=== PATIENT | female | born 1995 | race Caucasian/White ===

== ENCOUNTER 2017-07-03 11:08 | Emergency (ER) | payer BC ==
[~2017-07-03] VITALS: Wt 52.5 kg
[~2017-07-03 11:08] MED LIST: IBUP400T22 PO
[2017-07-03 12:58] LABS: ADD UMIC NO; UR ASCORBIC ACID NEGATIVE (NEGATIVE); UR BILIRUBIN (Dip) NEGATIVE (NEGATIVE); UR BLOOD (Dip) NEGATIVE (NEGATIVE); UR CLARITY CLEAR (CLEAR); UR COLOR YELLOW (YELLOW); UR GLUCOSE (Dip) NEGATIVE (NEGATIVE); UR KETONES (Dip) NEGATIVE (NEGATIVE); UR LEUKOCYTE ESTERASE (Dip) NEGATIVE Leu/ul (NEGATIVE); UR NITRITE (Dip) NEGATIVE (NEGATIVE); UR SPECIFIC GRAVITY (Dip) 1.011 (1.003-1.030); UR TOTAL PROTEIN (Dip) NEGATIVE (NEGATIVE); UR UROBILINOGEN (Dip) NEGATIVE (NEGATIVE)
--- NOTE | 2017-07-03 13:04 | RADRPT ---
PROCEDURE: US Pelvis CLINICAL INDICATION: Abdominal pain TECHNIQUE: Sonographic evaluation of the pelvis was performed utilizing both transabdominal and tr ansvaginal technique. Curved array transabdominal transducer technique as well as a high frequency endovaginal probe was utilized. Images were reviewed on the high-resolution PACS workstation. COMPARISON: No prior studies are available for comparison. FINDINGS: The uterus is normal in size, echogenicity, and morphology measuring 6.8 x 3.1 x 4.9 cm in dimension . The uterus is anteverted in normal position. The endometrium is thin and homogeneous measuring 3.7 mm in diameter. The normal trilaminar stripe of the endometrium is preserved. The right ovary measures 2.9 x 2.0 x 1.8 cm in dimension. The left ovary measures 2.4 x 1.7 x 1.9 c m in dimension. The ovaries are symmetric in size, echogenicity, and morphology. Normal Doppler fl ow is demonstrated to both ovaries. There are no adnexal masses. There is no significant free flui d in the pelvis. IMPRESSION: Unremarkable ultrasound of the pelvis. RPTAT: HH .Nabila Mandel MD, Date Time Electronically viewed and signed by .Nabila Mandel MD, MD on 07/03/2017 13:03 .Eliane/
[2017-07-03 13:10] LABS: BASOPHIL # 0.1 10^3/ul (0.0-0.1); BASOPHILS % 0.5 % (0.0-2.0); EOSINOPHILS # 0.1 10^3/ul (0.0-0.5); EOSINOPHILS % 0.6 % (0.0-7.0); HEMATOCRIT 38.7 % (37.0-47.0); HEMOGLOBIN 12.4 g/dl (12.0-16.0); LYMPHOCYTES % 17.2 % (15.0-51.0); MEAN CORPUSCULAR HEMOGLOBIN 27.5 pg (29.0-33.0); MEAN CORPUSCULAR VOLUME 85.8 fl (82.0-101.0); MEAN PLATELET VOLUME 9.8 fl (7.4-10.4); MONOCYTE # 0.6 10^3/ul (0.3-0.9); MONOCYTES % 5.5 % (0.0-11.0); NEUTROPHIL # 8.9 10^3/ul (1.6-7.5); NEUTROPHILS % 75.9 % (39.0-77.0); PLATELET COUNT 406 10^3/UL (140-415); RED BLOOD COUNT 4.51 10^6/ul (4.20-5.40); RED CELL DISTRIBUTION WIDTH 14.3 % (11.5-14.5); WHITE BLOOD COUNT 11.7 10^3/ul (4.8-10.8)
--- NOTE | 2017-07-03 13:27 | RADRPT ---
PROCEDURE: CT Abdomen and Pelvis without contrast. CLINICAL INDICATION: Right lower quadrant pain TECHNIQUE: CT of the abdomen and pelvis was performed on a multi-detector scanner without IV contr ast. Coronal and sagittal images were reformatted from the axial data set. One or more of the foll owing dose reduction techniques were used: automated exposure control, adjustment of the mA and/or k V according to patient size, use of iterative reconstruction technique. CTDI = 4.73 mGy. DLP = 250. 85 mGy-cm. COMPARISON: Ultrasound, 07/03/2017 FINDINGS: The lung bases are clear. The heart size is normal, without pericardial effusion. Liver, gallbladd er, biliary tree, pancreas, spleen, adrenal glands and kidneys are unremarkable. There is no urolit hiasis or obstructive uropathy. The stomach is grossly unremarkable. The aorta is of normal caliber. There is no retroperitoneal lymphadenopathy. The inna hepatis reg ion is clear. No bowel obstruction, free intraperitoneal air or abscess is identified. The appendix is well visual ized and normal. There is no diverticulosis, diverticulitis or colitis. Urinary bladder, uterus and adnexa are grossly unremarkable. No pelvic mass, free fluid or lymphadenopathy is identified. The surrounding osseous structures are unremarkable. No osteolytic or osteoblastic lesion is detect ed. IMPRESSION: 1. Normal appendix. 2. No urolithiasis or obstructive uropathy is seen. 3. No mass, lymphadenopathy, or focal acute inflammatory process is identified. RPTAT: AAOO .Kamron Iglesias MD, Date Time Electronically viewed and signed by .Kamron Iglesias MD, MD on 07/03/2017 13:27 .R/
[2017-07-03 13:33] LABS: ALBUMIN 4.6 g/dl (3.3-4.9); ALBUMIN/GLOBULIN RATIO 1.04; BILIRUBIN,INDIRECT 0.5 mg/dl (0-1.1); BILIRUBIN,TOTAL 0.5 mg/dl (0.2-1.3); CALCIUM 9.4 mg/dl (8.4-10.2); CREATININE 0.62 mg/dl (0.44-1.00); POTASSIUM 3.7 mmol/L (3.5-5.1)
[2017-07-03] MEDS ORDERED: IBUP-1542 PO (13:47)
--- NOTE | 2017-07-03 13:56 | ERD ---
ER Documentation Chief Complaint Date/Time DATE: 07/03/17 TIME: 13:51 Chief Complaint ABD PAIN, VAG BLEEDING, NO N/V HPI This is a 29-year-old female presents to the ER with right lower quadrant pain that started on Thursday. Patient states that right lower quadrant pain is gotten significantly worse. Pain is worse with movements. It is described as crampy and constant. Patient tried tylenol for the pain, however it did not work. she is also experiencing vaginal bleeding, per patient this is different from her period. Patient is currently sexually active is on control, therefore has normal periods. Not have any nausea vomiting or diarrhea. She does not have any fevers or chills. She denies any urinary frequency or dysuria. ROS 12 point review of systems was done, all negative except per HPI. Medications Home Meds Active Scripts Ibuprofen* (Motrin*) 600 Mg Tab, 600 MG PO Q6, #30 TAB Prov:FLOR DAWKINS 07/03/17 Ibuprofen* (Motrin*) 400 Mg Tab, 400 MG PO Q6, #30 TAB Prov:DESTINEY BREWER PA-C 09/26/16 Allergies Allergies: Coded Allergies: No Known Allergy (Unverified , 09/26/16) PMhx/Soc Medical and Surgical Hx: pt denies Medical Hx, pt denies Surgical Hx Hx Alcohol Use: No Hx Substance Use: No Hx Tobacco Use: No Physical Exam Vitals Vital Signs Date Time Temp Pulse Resp B/P Pulse Ox O2 Delivery O2 Flow Rate FiO2 07/03/17 11:11 98.7 87 18 116/77 98 Physical Exam Const: [] Head: Atraumatic Eyes: Normal Conjunctiva ENT: Normal External Ears, Nose and Mouth. Neck: Full range of motion..~ No meningismus. Resp: Clear to auscultation bilaterally Cardio: Regular rate and rhythm, no murmurs Abd: Soft, non tender, non distended. Normal bowel sounds Skin: No petechiae or rashes Back: No midline or flank tenderness Ext: No cyanosis, or edema Neur: Awake and alert Psych: Normal Mood and Affect Result Diagram: 07/03/17 1300 07/03/17 1300 Results 24 hrs Laboratory Tests Test 07/03/17 12:42 07/03/17 13:00 Urine Color YELLOW Urine Clarity CLEAR Urine pH 8.0 Urine Specific [place] 1.011 Urine Ketones NEGATIVEmg/dL Urine Nitrite NEGATIVEmg/dL Urine Bilirubin NEGATIVEmg/dL Urine Urobilinogen NEGATIVEmg/dL Urine Leukocyte Esterase NEGATIVELeu/ul Urine Hemoglobin NEGATIVEmg/dL Urine Glucose NEGATIVEmg/dL Urine Total Protein NEGATIVEmg/dl White Blood Count 11.710^3/ul Red Blood Count 4.5110^6/ul Hemoglobin 12.4g/dl Hematocrit 38.7% Mean Corpuscular Volume 85.8fl Mean Corpuscular Hemoglobin 27.5pg Mean Corpuscular Hemoglobin Concent 32.0g/dl Red Cell Distribution Width 14.3% Platelet Count 24185^3/UL Mean Platelet Volume 9.8fl Neutrophils % 75.9% Lymphocytes % 17.2% Monocytes % 5.5% Eosinophils % 0.6% Basophils % 0.5% Nucleated Red Blood Cells % 0.0/100WBC Neutrophils # 8.910^3/ul Lymphocytes # 2.010^3/ul Monocytes # 0.610^3/ul Eosinophils # 0.110^3/ul Basophils # 0.110^3/ul Nucleated Red Blood Cells # 0.010^3/ul Sodium Level 140mmol/L Potassium Level 3.7mmol/L Chloride Level 104mmol/L Carbon Dioxide Level 27mmol/L Anion Gap 13 Blood Urea Nitrogen 6mg/dl Creatinine 0.62mg/dl Glucose Level 84mg/dl Calcium Level 9.4mg/dl Total Bilirubin 0.5mg/dl Direct Bilirubin 0.00mg/dl Indirect Bilirubin 0.5mg/dl Aspartate Amino Transf (AST/SGOT) 22IU/L Alanine Aminotransferase (ALT/SGPT) 31IU/L Alkaline Phosphatase 70IU/L Total Protein 9.0g/dl Albumin 4.6g/dl Globulin 4.40g/dl Albumin/Globulin Ratio 1.04 Lipase 85U/L [place] [address] Radiology Main Line: [phone] DIAGNOSTIC IMAGING REPORT Patient: GLORIA KELLEY : 1995 Age: 21 Sex: F MR #: [id number] DOS: 07/03/17 1216 Ordering MD: FLOR DAWKINS PA-C Location: [facility] Room/Bed: PROCEDURE: CT Abdomen and Pelvis without contrast. CLINICAL INDICATION: Right lower quadrant pain TECHNIQUE: CT of the abdomen and pelvis was performed on a multi-detector scanner without IV contrast. Coronal and sagittal images were reformatted from the axial data set. One or more of the following dose reduction techniques were used: automated exposure control, adjustment of the mA and/or kV according to patient size, use of iterative reconstruction technique. CTDI = 4.73 mGy. DLP = 250.85 mGy-cm. COMPARISON: Ultrasound, 07/03/2017 FINDINGS: The lung bases are clear. The heart size is normal, without pericardial effusion. Liver, gallbladder, biliary tree, pancreas, spleen, adrenal glands and kidneys are unremarkable. There is no urolithiasis or obstructive uropathy. The stomach is grossly unremarkable. The aorta is of normal caliber. There is no retroperitoneal lymphadenopathy. The inna hepatis region is clear. No bowel obstruction, free intraperitoneal air or abscess is identified. The appendix is well visualized and normal. There is no diverticulosis, diverticulitis or colitis. Urinary bladder, uterus and adnexa are grossly unremarkable. No pelvic mass, free fluid or lymphadenopathy is identified. The surrounding osseous structures are unremarkable. No osteolytic or osteoblastic lesion is detected. IMPRESSION: 1. Normal appendix. 2. No urolithiasis or obstructive uropathy is seen. 3. No mass, lymphadenopathy, or focal acute inflammatory process is identified. RPTAT: AAOO .Kamron Iglesias MD, MD Date Time Electronically viewed and signed by .Kamron Iglesias MD, MD on 07/03/2017 13: 27 .R/ CC: FLOR DAWKINS [place] [address] Radiology Main Line: [phone] DIAGNOSTIC IMAGING REPORT Patient: GLORIA KELLEY : 1995 Age: 21 Sex: F MR #: [id number] DOS: 07/03/17 0000 Ordering MD: FLOR DAWKINS PA-C Location: [facility] Room/Bed: PROCEDURE: US Pelvis CLINICAL INDICATION: Abdominal pain TECHNIQUE: Sonographic evaluation of the pelvis was performed utilizing both transabdominal and transvaginal technique. Curved array transabdominal transducer technique as well as a high frequency endovaginal probe was utilized. Images were reviewed on the high-resolution PACS workstation. COMPARISON: No prior studies are available for comparison. FINDINGS: The uterus is normal in size, echogenicity, and morphology measuring 6.8 x 3.1 x 4.9 cm in dimension. The uterus is anteverted in normal position. The endometrium is thin and homogeneous measuring 3.7 mm in diameter. The normal trilaminar stripe of the endometrium is preserved. The right ovary measures 2.9 x 2.0 x 1.8 cm in dimension. The left ovary measures 2.4 x 1.7 x 1.9 cm in dimension. The ovaries are symmetric in size, echogenicity, and morphology. Normal Doppler flow is demonstrated to both ovaries. There are no adnexal masses. There is no significant free fluid in the pelvis. IMPRESSION: Unremarkable ultrasound of the pelvis. RPTAT: HH .Nabila Mandel MD, MD Date Time Electronically viewed and signed by .Nabila Mandel MD, MD on 07/03/2017 13 :03 .G/ CC: FLOR DAWKINS Procedures/MDM Differential diagnosis includes but is not limited to appendicitis, hernia, UTI , constipation, ectopic , ovarian torsion, PID, Mittelschmerz, fibroid. This is a 21-year-old female presents to the ER with worsening right lower quadrant pain, at this time there is no evidence of appendicitis or ovarian torsion. patient is afebrile and extremely well-appearing. Patient was benign, she is stable for outpatient follow-up. Patient will be sent home with ibuprofen. She is to follow-up with her primary care doctor within 1-2 days return to ER sooner if symptoms worsen. My medical decision making shared with the patient she understands and agrees with plan. Departure Diagnosis: Primary Impression: Abdominal pain Condition: Stable Patient Instructions: Abdominal Pain Referrals: SHYAM PALENCIA MD (PCP) Additional Instructions: Call your primary care doctor TOMORROW for an appointment during the next 1-2 days.See the doctor sooner or return here if your condition worsens before your appointment time. FLOR DAWKINS Jul 03, 2017 13:56
[2017-07-03 14:00] VITALS: BP 111/66; PULSE 97; RESP 16; TEMP 97.9
== END 2017-07-03 13:57 | disposition home or self-care (01) ==
LOC: FTE 11:08
DX: R10.31 Right lower quadrant pain (principal)
CPT/HCPCS: 36415; 74176; 76830; 76856; 80053; 81003; 83690; 85025

== ENCOUNTER 2018-04-02 10:15 | Emergency (ER) | END 2018-04-02 11:06 | disposition home or self-care (01) ==

== ENCOUNTER 2018-07-27 17:00 | Emergency (ER) | END 2018-07-27 18:10 | disposition left against medical advice (07) ==

== ENCOUNTER 2018-09-20 12:04 | Emergency (ER) | END 2018-09-20 14:10 | disposition home or self-care (01) ==

== ENCOUNTER 2018-10-02 07:31 | Emergency (ER) | payer BC ==
[~2018-10-02] VITALS: Ht 157.5 cm; Wt 58.2 kg
[~2018-10-02 07:31] MED LIST changes: +HYDR-4011 PO; +IBUP-1542 PO; +IBUP-1561 PO; -IBUP400T22 PO; +METH750T93 PO; +NAPR-985 PO
[2018-10-02 07:33] VITALS: Ht 157.5 cm; Wt 58.2 kg
[2018-10-02] MEDS ORDERED: PHEN-538 PO (07:52)
[2018-10-02] MEDS ORDERED: CEPH-443 PO (07:52)
--- NOTE | 2018-10-02 07:54 | ERD ---
ER Documentation Chief Complaint Chief Complaint right lower quadrant pain 3/10 onset 4 days ago HPI This is a 23-year-old female presents ED with complaints of dysuria times 4 days. Patient admits to some lower suprapubic discomfort associated with the dysuria. Admits to hematuria and increased frequency of urination. Denies fever, chills, nausea, vomiting, diarrhea, constipation, back pain, fever, chills and other symptoms. No known drug allergies ROS All systems reviewed and are negative except as per history of present illness. Medications Home Meds Active Scripts Cephalexin* (Keflex*) 500 Mg Capsule, 500 MG PO BID for 7 Days, CAP Prov:DWAYNE SANTOS PA-C 10/02/18 Phenazopyridine Hcl* (Pyridium*) 200 Mg Tab, 200 MG PO TID PRN for URINARY PAIN, #6 TAB Prov:DWAYNE SANTOS PA-C 10/02/18 Methocarbamol* (Robaxin*) 750 Mg Tablet, 750 MG PO TID PRN for prn, #30 TAB Prov:BESSIE LENNON DO 09/20/18 Hydrocodone/Acetaminophen ([place] 5-325 Tablet) 1 Each Tablet, 1 TAB PO Q6H PRN for PAIN, #10 TAB Prov:BESSIE LENNON DO 09/20/18 Naproxen* (Naprosyn*) 500 Mg Tablet, 500 MG PO BID PRN for PAIN AND/OR INFLAMMATION, #30 TAB Prov:CHRISTOFER MASCORRO PA-C 04/02/18 Ibuprofen* (Motrin*) 600 Mg Tab, 600 MG PO Q6, #30 TAB Prov:FLOR DAWKINS 07/03/17 Ibuprofen* (Motrin*) 400 Mg Tab, 400 MG PO Q6, #30 TAB Prov:DESTINEY BREWER PA-C 09/26/16 Allergies Allergies: Coded Allergies: No Known Allergy (Unverified , 10/02/18) PMhx/Soc History of Surgery: Yes (breast aug) Anesthesia Reaction: No Hx Neurological Disorder: No Hx Respiratory Disorders: No Hx Cardiac Disorders: No Hx Psychiatric Problems: No Hx Miscellaneous Medical Probl: No Hx Alcohol Use: No Hx Substance Use: No Hx Tobacco Use: No FmHx Family History: No diabetes Physical Exam Vitals Vital Signs Date Temp Pulse Resp B/P (MAP) Pulse Ox O2 O2 Flow FiO2 Time Delivery Rate 10/02/18 98.9 94 18 106/62 98 07:33 (77) Physical Exam Const: No acute distress Head: Atraumatic Eyes: Normal Conjunctiva ENT: Normal External Ears, Nose and Mouth. Neck: Full range of motion. No meningismus. Resp: Clear to auscultation bilaterally Cardio: Regular rate and rhythm, no murmurs Abd: Soft, nondistended, no peritoneal signs, no rigidity, no surgical abdomen, bowel sounds present all 4 quadrants, nontender light and deep palpation all 4 quadrants, McBurney's point nontender, no rebound tenderness, mild suprapubic tenderness Back: No midline or flank tenderness Results 24 hrs Laboratory Tests Test 10/02/18 07:47 10/02/18 07:49 Urine Color YELLOW Urine Clarity CLOUDY Urine pH 7.0 Urine Specific [place] 1.019 Urine Ketones NEGATIVE mg/dL Urine Nitrite NEGATIVE mg/dL Urine Bilirubin NEGATIVE mg/dL Urine Urobilinogen 1+ mg/dL Urine Leukocyte Esterase 3+ Nikos/ul Urine Microscopic RBC 56 /HPF Urine Microscopic WBC > 182 /HPF Urine Squamous Epithelial Cells MODERATE /HPF Urine Transitional Epithelial Cells FEW /HPF Urine Bacteria FEW /HPF Urine Mucus FEW /HPF Urine Hemoglobin 2+ mg/dL Urine Glucose NEGATIVE mg/dL Urine Total Protein 2+ mg/dl POC Beta HCG, Qualitative NEGATIVE Current Medications Medications Dose Sig/[place] Start Time Status Last (Trade) Ordered Route PRN Stop Time Admin Dose Reason Admin 200 mg ONCE ONCE 10/02/18 DC 10/02/18 Phenazopyridi PO 08:00 10/02/18 07:54 ne HCl 08:01 (Pyridium) Procedures/MDM LAB INTERPRETATION: Urine negative Urinalysis remarkable for bacteria, microscopic WBC greater than 182, microscopic RBC 56, leukocyte Estrace 3+ ER COURSE: The patient was given Pyridium The medication was well tolerated and the patient reports improvement in symptoms. The patient was stable throughout ED course. I kept the patient and/or family informed of laboratory and diagnostic imaging results throughout the emergency room course. The patient was promptly evaluated and a treatment plan was devised based on H&P and other data. This plan was discussed with the patient who agreed and had no f urther questions or concerns prior to discharge. MEDICAL DECISION MAKING: This is a 23-year-old female presents ED with UTI-like symptoms times 4 days. Urinalysis reflects UTI. At this time there is no evidence of genitourinary emergency or gastrointestinal emergency. No evidence of sepsis, pyelonephritis, septic stone, obstructive pyelonephritis, sinusitis, cholecystitis, small bowel obstruction, perforated viscus, ovarian torsion, ectopic , tubo-ovarian abscess among others. Vitals are stable patient can be managed close outpatient follow-up. Advised patient follow-up with primary care in 48 hours. Return to ED with any worsening symptoms DISPOSITION PLAN: We discussed follow up with the patient's primary care doctor within 24 to 48 hours. Patient counseled regarding my diagnostic impression and care plan. Prior to discharge all questions answered. Pt agrees with treatment plan and understands strict return precautions. Precautionary instructions provided including instructions to return to the ER if not improving or for any worsening or changing symptoms or concerns. SPECIALIST FOLLOW UP RECOMMENDED: None Patient has been advised to follow up with primary care in 1-2 days. Disclaimer: Inadvertent spelling and grammatical errors are likely due to EHR/dictation software use and do not reflect on the overall quality of patient care. Also, please note that the electronic time recorded on this note does not necessarily reflect the actual time of the patient encounter. Departure Diagnosis: Primary Impression: UTI (urinary tract infection) Urinary tract infection type: site unspecified Hematuria presence: without hematuria Qualified Codes: N39.0 - Urinary tract infection, site not specified Condition: Stable Patient Instructions: Understanding Urinary Tract Infections (UTIs) Referrals: COMMUNITY CLINICS YOU HAVE RECEIVED A MEDICAL SCREENING EXAM AND THE RESULTS INDICATE THAT YOU DO NOT HAVE A CONDITION THAT REQUIRES URGENT TREATMENT IN THE EMERGENCY DEPARTMENT. FURTHER EVALUATION AND TREATMENT OF YOUR CONDITION CAN WAIT UNTIL YOU ARE SEEN IN YOUR DOCTORS OFFICE WITHIN THE NEXT 1-2 DAYS. IT IS YOUR RESPONSIBILITY TO MAKE AN APPOINTMENT FOR FOLOW-UP CARE. IF YOU HAVE A PRIMARY DOCTOR --you should call your primary doctor and schedule an appointment IF YOU DO NOT HAVE A PRIMARY DOCTOR YOU CAN CALL OUR PHYSICIAN REFERRAL HOTLINE AT IF YOU CAN NOT AFFORD TO SEE A PHYSICIAN YOU CAN CHOSE FROM THE FOLLOWING [facility] CL[facility]ICS [facility] [address] [facility] [address] [facility] [address] [facility] [address] [facility] [address] [facility]. [facility] [address] Additional Instructions: Patient advised to return to the ED immediately for new or worsening symptoms. Patient advised to follow up with primary care provider in the next 24-48 hours. Patient verbalized understanding and agrees with treatment plan and course of action. If patient has no primary care they may follow up with one of the community clinics listed on the following page or one of the options listed below [facility] + [facility] [address] [place] [address] or [facility] [address] [place] [address] or [facility] [address] [place] [address] DWAYNE SANTOS PA-C Oct 02, 2018 07:54
[2018-10-02] MEDS ORDERED: PHENAZOPYRIDINE 100 MG TAB PO ONE (08:00)
== END 2018-10-02 08:20 | disposition home or self-care (01) ==
LOC: FTE 07:31
DX: N39.0 Urinary tract infection, site not specified (principal)
CPT/HCPCS: 81001; 81025; Z7502; Z7610; 99283